=== PATIENT | male | born 1975 | race African-American/Black ===

== ENCOUNTER 2018-12-08 09:58 | Emergency (ER) | payer MEDICAID ==
[2018-12-08 10:06] VITALS: BP 136/97; PULSE 79
[2018-12-08] MEDS ORDERED: Sodium Chloride 0.9% 10 ML Syringe FLUSH PRN (10:10)
--- NOTE | 2018-12-08 11:33 | EDM.PDOC ---
ED HPI GENERAL MEDICAL PROBLEM - General Chief Complaint: Chest Pain Stated Complaint: [facility] Time Seen by Provider: 12/08/18 10:01 Source of Information: Reports: Patient History Limitations: Reports: No Limitations - History of Present Illness INITIAL COMMENTS - FREE TEXT/NARRATIVE: The patient presents by [facility] ambulance for right sided chest pain. This started just prior to arrival to arrival. 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 He was given aspirin and fentanyl 50mcg IV. He feels a little better now. He had some shortness of breath when it started. He has pain when moving his arm. He has no fever, chills, cough, abdominal pain, nausea, vomiting, leg pain and edema. He has no history of [place] but he does have a history of diabetes. Onset: Sudden Duration: Hour(s): Location: Reports: Chest Quality: Reports: Sharp Severity: Moderate Improves with: Reports: None Worsens with: Reports: None Associated Symptoms: Reports: Chest Pain Treatments GENERAL OPERATIONS MANAGER: Reports: Aspirin, Other Medication(s), Oxygen Other Treatments GENERAL OPERATIONS MANAGER: x3 81mg Right Chest Pain Score (Numeric/FACES): 10 - Related Data Allergies Allergy/AdvReac Type Severity Reaction Status Date / Time No Known Allergies Allergy Verified 09/19/15 23:46 Home Meds: Home Meds Insulin Aspart [NovoLOG] 0 unit SUBCUT WITHMEALSANDBED 10/23/18 [History] Insulin Detemir [Levemir Flextouch] 65 unit SQ BEDTIME 10/23/18 [History] Lisinopril 20 mg PO DAILY 10/23/18 [History] atorvaSTATin [Lipitor] 20 mg PO BEDTIME 10/23/18 [History] metFORMIN [Glucophage] 500 mg PO WITHDINNER 10/23/18 [History] Past Medical History - Past Health History Medical/Surgical History: Denies Medical/Surgical History Cardiovascular History: Reports: High Cholesterol, Hypertension, [place] Other Cardiovascular History: [place] x 2 years ago Gastrointestinal History: Reports: GERD Musculoskeletal History: Reports: Arthritis Neurological History: Reports: Concussion Endocrine/Metabolic History: Reports: Diabetes, Type II - Infectious Disease History Infectious Disease History: Reports: Chicken Pox - Past Surgical History HEENT Surgical History: Reports: Oral Surgery Social & Family History - Family History Family Medical History: Noncontributory - Tobacco Use Smoking Status *Q: Never Smoker - Caffeine Use Caffeine Use: Reports: Coffee - Living Situation & Occupation Living situation: Reports: , with Family Occupation: Employed ED ROS GENERAL - Review of Systems Review Of Systems: See Below Constitutional: Reports: No Symptoms HEENT: Reports: No Symptoms Respiratory: Reports: No Symptoms Cardiovascular: Reports: Chest Pain Endocrine: Reports: No Symptoms GI/Abdominal: Reports: No Symptoms : Reports: No Symptoms Musculoskeletal: Reports: No Symptoms ED EXAM, GENERAL - Physical Exam Exam: See Below Exam Limited By: No Limitations General Appearance: Alert, No Apparent Distress Ears: Normal External Exam Nose: Normal Inspection Head: Atraumatic, Normocephalic Neck: Normal Inspection Respiratory/Chest: No Respiratory Distress, Lungs Clear, Normal Breath Sounds Cardiovascular: Regular Rate, Rhythm, No Edema, No Murmur GI/Abdominal: Soft, Non-Tender, No Organomegaly, No Mass Back Exam: Normal Inspection Extremities: Normal Inspection EKG INTERPRETATION EKG Date: 12/08/18 Time: 10:05 Rhythm: NSR Rate (Beats/Min): 78 Wilmer: Normal P-Wave: Present QRS: Normal ST-T: Normal QT: Normal Course - Vital Signs Last Recorded V/S: Last Vital Signs Temp 96.9 F 12/08/18 10:02 Pulse 79 12/08/18 10:02 Resp 20 12/08/18 10:02 BP 136/97 H 12/08/18 10:02 Pulse Ox 95 12/08/18 10:02 - Orders/Labs/Meds Orders: Active Orders 24 hr Category Date Time Status Cardiac Monitoring [RC] . DIRECTED Care 12/08/18 10:10 Active EKG Documentation Completion [RC] STAT Care 12/08/18 10:11 Active Peripheral IV Care [RC] . DIRECTED Care 12/08/18 10:11 Active Chest 1V Frontal [CR] Stat Exams 12/08/18 10:11 Taken TROPONIN I [CHEM] Stat Lab 12/08/18 12:17 Ordered Sodium Chloride 0.9% [Saline Flush] Med 12/08/18 10:10 Active 10 ml FLUSH ASDIRECTED PRN Peripheral IV Insertion Adult [OM.PC] Stat Oth 12/08/18 10:10 Ordered Medication Orders Sodium Chloride (Saline Flush) 10 ml FLUSH ASDIRECTED PRN PRN Reason: Keep Vein Open Last Admin: 12/08/18 10:16 Dose: 10 ml Labs: Laboratory Tests 12/08/18 12/08/18 12/08/18 Range/Units 10:30 10:30 10:30 WBC 6.42 (4.23-9.07) K/mm3 RBC 4.99 (4.63-6.08) M/mm3 Hgb 14.5 D (13.7-17.5) gm/dl Hct 43.5 (40.1-51.0) % MCV 87.2 (79.0-92.2) fl MCH 29.1 (25.7-32.2) pg MCHC 33.3 (32.2-35.5) g/dl RDW Std Deviation 46.2 H (35.1-43.9) fL Plt Count 227 (163-337) K/mm3 MPV 10.9 (9.4-12.3) fl Neut % (Auto) 48.1 (34.0-67.9) % Lymph % (Auto) 37.9 (21.8-53.1) % [place] % (Auto) 10.0 (5.3-12.2) % Eos % (Auto) 3.3 (0.8-7.0) Baso % (Auto) 0.5 (0.1-1.2) % Neut # (Auto) 3.10 (1.78-5.38) K/mm3 Lymph # (Auto) 2.43 (1.32-3.57) K/mm3 [place] # (Auto) 0.64 (0.30-0.82) K/mm3 Eos # (Auto) 0.21 (0.04-0.54) K/mm3 Baso # (Auto) 0.03 (0.01-0.08) K/mm3 D-Dimer, Quantitative 0.25 (0.19-0.50) mg/L Sodium 141 (136-145) mEq/L Potassium 4.1 (3.5-5.1) mEq/L Chloride 105 (98-107) mEq/L Carbon Dioxide 28 (21-32) mEq/L Anion Gap 12.1 (5-15) BUN 16 (7-18) mg/dL Creatinine 1.2 (0.7-1.3) mg/dL Est Cr Clr Drug Dosing 82.80 mL/min Estimated GFR (MDRD) > 60 (>60) mL/min BUN/Creatinine Ratio 13.3 L (14-18) Glucose 101 (74-106) mg/dL Calcium 8.7 (8.5-10.1) mg/dL Total Bilirubin 0.5 (0.2-1.0) mg/dL AST 36 (15-37) U/L ALT 65 H (16-63) U/L Alkaline Phosphatase 42 L (46-116) U/L Troponin I < 0.017 (0.00-0.056) ng/mL Total Protein 6.8 (6.4-8.2) g/dl Albumin 3.5 (3.4-5.0) g/dl Globulin 3.3 gm/dL Albumin/Globulin Ratio 1.1 (1-2) Meds: Medications Generic Name Dose Route Start Last Admin Trade Name Freq PRN Reason Stop Dose Admin Sodium Chloride 10 ml 12/08/18 10:10 12/08/18 10:16 Saline Flush FLUSH 10 ml ASDIRECTED PRN Administration Keep Vein Open - Re-Assessments/Exams Free Text/Narrative Re-Assessment/Exam: 12/08/18 11:34 I ordered an IV saline lock, EKG, CXR and labs. His EKG shows a NSR with no acute changes. His CXR looks good. 12/08/18 11:35 His CBC and D-dimer are negative. 12/08/18 12:26 His CMP look good. His troponin is negative. I will get a repeat troponin. Departure - Departure Time of Disposition: 12:30 Disposition: Home, Self-Care 01 Condition: Good Clinical Impression: Atypical chest pain Referrals: PCP,None [Primary Care Provider] - Jose Johnson PA-C [Physician Pedigree Researcher] - 1 Week Forms: ED Department Discharge Additional Instructions: Take tylenol or motrin for the pain. Follow up with Jose Johnson. Please return if you are worse. - My Orders Last 24 Hours: My Active Orders 12/08/18 10:10 Cardiac Monitoring [RC] . DIRECTED Sodium Chloride 0.9% [Saline Flush] 10 ml FLUSH ASDIRECTED PRN Peripheral IV Insertion Adult [OM.PC] Stat 12/08/18 10:11 EKG Documentation Completion [RC] STAT Peripheral IV Care [RC] . DIRECTED Chest 1V Frontal [CR] Stat 12/08/18 12:17 TROPONIN I [CHEM] Stat - Assessment/Plan Last 24 Hours: My Active Orders 12/08/18 10:10 Cardiac Monitoring [RC] . DIRECTED Sodium Chloride 0.9% [Saline Flush] 10 ml FLUSH ASDIRECTED PRN Peripheral IV Insertion Adult [OM.PC] Stat 12/08/18 10:11 EKG Documentation Completion [RC] STAT Peripheral IV Care [RC] . DIRECTED Chest 1V Frontal [CR] Stat 12/08/18 12:17 TROPONIN I [CHEM] Stat
--- NOTE | 2018-12-08 15:01 | CR ---
Chest: Portable view of the chest was obtained. Comparison: No prior chest x-ray. Heart size and mediastinum are normal. Lungs are clear. Bony structures are grossly intact. Pressure: 1. Nothing acute is appreciated on portable chest x-ray. Diagnostic code #1
== END 2018-12-08 12:50 | disposition home or self-care (01) ==
LOC: JD.ED 09:58
DX: R07.89 Other chest pain (principal); E11.9 Type 2 diabetes mellitus without complications; I25.2 Old myocardial infarction; E78.5 Hyperlipidemia, unspecified; Z79.4 Long term (current) use of insulin; Z79.899 Other long term (current) drug therapy
CPT/HCPCS: 36415; 71045; 71045-26; 80053; 84484; 85025; 85379; 93005; 93010; 99284; 99285-25

== ENCOUNTER 2019-03-23 04:03 | Emergency (ER) | payer MEDICAID ==
[2019-03-23 04:13] VITALS: BP 160/101; PULSE 86
--- NOTE | 2019-03-23 05:04 | EDM.PDOC ---
ED HPI GENERAL MEDICAL PROBLEM - General Chief Complaint: Chest Pain Stated Complaint: PAIN IN CHEST AND BURNING EYES Time Seen by Provider: 03/23/19 04:28 Source of Information: Reports: Patient History Limitations: Reports: No Limitations - History of Present Illness INITIAL COMMENTS - FREE TEXT/NARRATIVE: This is a 43-year-old male. He apparently awoke around 2 AM with some tightness and sharp pain in his chest and he wakes up his and tells her he is having chest pain. Wanted to bring him to the ER but he indicated would go away soon because he gets it every so often. It did not go away soon and so he comes to the ER around 4 AM. By now much of the discomfort has resolved and he says he does not really have any sharp pain there just may be a little bit of muscle tightness. He has had muscle tightness in his chest before that has mimicked chest pain. He knows about chest pain because back in 2006 his blood sugar was in the 900s and he had a small heart attack at that time. He is now an insulin-dependent diabetic. He does not think anything is going on at this time but he comes to the ER. I explained to him the EKG did not show any acute changes at this time. He denies any recent illnesses colds coughs nausea vomiting or diarrhea. - Related Data Allergies Allergy/AdvReac Type Severity Reaction Status Date / Time No Known Allergies Allergy Verified 03/23/19 04:13 Home Meds: Home Meds Insulin Aspart [NovoLOG] 0 unit SUBCUT WITHMEALSANDBED 10/23/18 [History] Insulin Detemir [Levemir Flextouch] 65 unit SQ BEDTIME 10/23/18 [History] Lisinopril 20 mg PO DAILY 10/23/18 [History] atorvaSTATin [Lipitor] 20 mg PO BEDTIME 10/23/18 [History] metFORMIN [Glucophage] 500 mg PO WITHDINNER 10/23/18 [History] Past Medical History - Past Health History Medical/Surgical History: Denies Medical/Surgical History Cardiovascular History: Reports: High Cholesterol, Hypertension, [place] Other Cardiovascular History: [place] x 2 years ago Gastrointestinal History: Reports: GERD Musculoskeletal History: Reports: Arthritis Neurological History: Reports: Concussion Endocrine/Metabolic History: Reports: Diabetes, Type II - Infectious Disease History Infectious Disease History: Reports: Chicken Pox - Past Surgical History HEENT Surgical History: Reports: Oral Surgery Social & Family History - Family History Family Medical History: Noncontributory - Tobacco Use Smoking Status *Q: Never Smoker - Caffeine Use Caffeine Use: Reports: Coffee - Recreational Drug Use Recreational Drug Use: No - Living Situation & Occupation Living situation: Reports: , with Family Occupation: Employed ED ROS GENERAL - Review of Systems Review Of Systems: See Below Constitutional: Denies: Fever, Chills, Diaphoresis HEENT: Reports: No Symptoms Respiratory: Denies: Shortness of Breath, Wheezing, Cough Cardiovascular: Reports: Chest Pain. Denies: Edema Endocrine: Reports: High Glucose GI/Abdominal: Denies: Abdominal Pain, Constipation, Diarrhea, Nausea, Vomiting : Reports: No Symptoms Musculoskeletal: Reports: No Symptoms Skin: Reports: No Symptoms Neurological: Reports: No Symptoms Psychiatric: Reports: No Symptoms. Denies: Anxiety Hematologic/Lymphatic: Reports: No Symptoms ED EXAM, GENERAL - Physical Exam Exam: See Below Exam Limited By: No Limitations General Appearance: Alert, WD/WN, No Apparent Distress Eye Exam: Bilateral Eye: Normal Inspection Ears: Normal External Exam Nose: Normal Inspection Throat/Mouth: Normal Inspection, Normal Lips, Normal Voice, No Airway Compromise Head: Normocephalic Neck: Supple Respiratory/Chest: No Respiratory Distress, Lungs Clear, Normal Breath Sounds, Other (His anterior chest is not particularly tender on palpation and I cannot reproduce any sharp pain or tightness) Cardiovascular: Regular Rate, Rhythm, No Murmur GI/Abdominal: Soft, Non-Tender Back Exam: Full Range of Motion Extremities: Normal Inspection, Normal Range of Motion Neurological: Alert, Oriented Psychiatric: Normal Affect, Normal Mood Skin Exam: Warm, Dry EKG INTERPRETATION EKG Date: 03/23/19 Time: 04:15 EKG Interpretation Comments: Normal sinus rhythm rate 85, no acute ST or T wave changes, no ischemia noted, early repolarization variant is noted Course - Vital Signs Last Recorded V/S: Last Vital Signs Temp 97.8 F 03/23/19 04:10 Pulse 86 03/23/19 04:10 Resp 16 03/23/19 04:10 BP 160/101 H 03/23/19 04:10 Pulse Ox 98 03/23/19 04:10 - Orders/Labs/Meds Orders: Active Orders 24 hr Category Date Time Status Blood Glucose Check, Bedside [RC] ONETIME Care 03/23/19 04:18 Active EKG Documentation Completion [RC] ASDIRECTED Care 03/23/19 04:18 Active EKG 12 Lead [EK] Stat Ther 03/23/19 04:18 Ordered Labs: Laboratory Tests 03/23/19 03/23/19 03/23/19 Range/Units 04:16 04:53 04:53 WBC 9.84 H (4.23-9.07) K/mm3 RBC 5.46 (4.63-6.08) M/mm3 Hgb 16.3 D (13.7-17.5) gm/dl Hct 47.7 (40.1-51.0) % MCV 87.4 (79.0-92.2) fl MCH 29.9 (25.7-32.2) pg MCHC 34.2 (32.2-35.5) g/dl RDW Std Deviation 43.4 (35.1-43.9) fL Plt Count 224 (163-337) K/mm3 MPV 10.9 (9.4-12.3) fl Neut % (Auto) 62.8 (34.0-67.9) % Lymph % (Auto) 26.2 (21.8-53.1) % [place] % (Auto) 9.8 (5.3-12.2) % Eos % (Auto) 0.9 (0.8-7.0) Baso % (Auto) 0.2 (0.1-1.2) % Neut # (Auto) 6.18 H (1.78-5.38) K/mm3 Lymph # (Auto) 2.58 (1.32-3.57) K/mm3 [place] # (Auto) 0.96 H (0.30-0.82) K/mm3 Eos # (Auto) 0.09 (0.04-0.54) K/mm3 Baso # (Auto) 0.02 (0.01-0.08) K/mm3 Sodium 140 (136-145) mEq/L Potassium 3.9 (3.5-5.1) mEq/L Chloride 102 (98-107) mEq/L Carbon Dioxide 26 (21-32) mEq/L Anion Gap 15.9 H (5-15) BUN 17 (7-18) mg/dL Creatinine 1.2 (0.7-1.3) mg/dL Est Cr Clr Drug Dosing 82.80 mL/min Estimated GFR (MDRD) > 60 (>60) mL/min BUN/Creatinine Ratio 14.2 (14-18) Glucose 138 H (74-106) mg/dL POC Glucose 154 H (70-105) mg/dL Calcium 9.4 (8.5-10.1) mg/dL Total Bilirubin 0.9 (0.2-1.0) mg/dL AST 9 L (15-37) U/L ALT 31 (16-63) U/L Alkaline Phosphatase 56 (46-116) U/L Troponin I < 0.017 (0.00-0.056) ng/mL Total Protein 7.7 (6.4-8.2) g/dl Albumin 3.8 (3.4-5.0) g/dl Globulin 3.9 gm/dL Albumin/Globulin Ratio 1.0 (1-2) - Re-Assessments/Exams Free Text/Narrative Re-Assessment/Exam: 03/23/19 06:05 Patient has been having no symptoms since he arrived to the ER. His were waiting for the blood work the patient got tired of waiting and since just left the ER stating he did not want to wait any longer. Is about that time that we actually got the labs back but he was not here. His troponin was normal his CBC and electrolytes were all normal as well. I would therefore would have discharged him but he is already left. Departure - Departure Time of Disposition: 06:06 Disposition: Eloped 07 Condition: Good Clinical Impression: Atypical chest pain Referrals: Tanja Daniels PA-C [Primary Care Provider] - Forms: ED Department Discharge Additional Instructions: Patient is already left without receiving charge instructions Sepsis Event Note - Evaluation Sepsis Screening Result: No Definite Risk - Focused Exam Vital Signs: Vital Signs Temp Pulse Resp BP Pulse Ox 03/23/19 04:10 97.8 F 86 16 160/101 H 98 Date Exam was Performed: 03/23/19 Time Exam was Performed: 06:05 - My Orders Last 24 Hours: My Active Orders 03/23/19 04:18 Blood Glucose Check, Bedside [RC] ONETIME EKG Documentation Completion [RC] ASDIRECTED EKG 12 Lead [EK] Stat - Assessment/Plan Last 24 Hours: My Active Orders 03/23/19 04:18 Blood Glucose Check, Bedside [RC] ONETIME EKG Documentation Completion [RC] ASDIRECTED EKG 12 Lead [EK] Stat
== END 2019-03-23 05:52 | disposition left against medical advice (07) ==
LOC: JD.ED 04:03
DX: R07.89 Other chest pain (principal); I10 Essential (primary) hypertension; E11.9 Type 2 diabetes mellitus without complications; I25.2 Old myocardial infarction; E78.00 Pure hypercholesterolemia, unspecified; M19.90 Unspecified osteoarthritis, unspecified site; Z79.4 Long term (current) use of insulin; Z79.899 Other long term (current) drug therapy
CPT/HCPCS: 36415; 80053; 82962; 84484; 85025; 93005; 93010; 99282; 99285-25

== ENCOUNTER 2019-07-12 22:00 | Emergency (ER) | payer MEDICAID ==
[2019-07-12 22:25] VITALS: BP 158/72; PULSE 98
--- NOTE | 2019-07-12 22:33 | EDM.PDOC ---
ED HPI GENERAL MEDICAL PROBLEM - General Chief Complaint: Skin Complaint Stated Complaint: INFECTION LEFT HAND/FEET & KNEES HURT Time Seen by Provider: 07/12/19 22:01 Source of Information: Reports: Patient History Limitations: Reports: Other (Very poor historian) - History of Present Illness INITIAL COMMENTS - FREE TEXT/NARRATIVE: TRIAGE NOTE -- pt c/o left hand infection for the last 2 weeks. significant other has taken pt to the [facility] x2, the first time pt was diagnosed with gout, the second time was placed on antibiotics. SO is unsure if patient is taking the antibiotics or not. SO also concerned as patient is a type 2 diabetic and has not been taking his metformin or insulin. pt complains of bilateral feet pain and is unsteady on his feet. [ End ] As above. Risk factors include history of IV drug abuse. Patient insists he did not inject himself in the area of his left hand. Other risk factors include diabetes high blood pressure smoking and noncompliance. Patient does not know what antibiotic he should be taking. It is not clear that he is taking an antibiotic. Denies fever respiratory symptoms or other symptom of acute medical illness. Left Hand Pain Score (Numeric/FACES): 7 Bilateral Foot Pain Score (Numeric/FACES): 10 - Related Data Allergies Allergy/AdvReac Type Severity Reaction Status Date / Time No Known Allergies Allergy Verified 07/12/19 22:25 Home Meds: Home Meds Insulin Aspart [NovoLOG] 0 unit SUBCUT WITHMEALSANDBED 10/23/18 [History] Insulin Detemir [Levemir Flextouch] 65 unit SQ BEDTIME 10/23/18 [History] Lisinopril 20 mg PO DAILY 10/23/18 [History] atorvaSTATin [Lipitor] 20 mg PO BEDTIME 10/23/18 [History] metFORMIN [Glucophage] 500 mg PO WITHDINNER 10/23/18 [History] Past Medical History - Past Health History Medical/Surgical History: Denies Medical/Surgical History Cardiovascular History: Reports: High Cholesterol, Hypertension, [place] Other Cardiovascular History: [place] x 2 years ago Gastrointestinal History: Reports: GERD Musculoskeletal History: Reports: Arthritis Neurological History: Reports: Concussion Endocrine/Metabolic History: Reports: Diabetes, Type II - Infectious Disease History Infectious Disease History: Reports: Chicken Pox - Past Surgical History HEENT Surgical History: Reports: Oral Surgery Social & Family History - Family History Family Medical History: Noncontributory - Tobacco Use Smoking Status *Q: Current Every Day Smoker - Caffeine Use Caffeine Use: Reports: Coffee - Living Situation & Occupation Living situation: Reports: , with Family Occupation: Employed ED ROS GENERAL - Review of Systems Review Of Systems: Comprehensive ROS is negative, except as noted in HPI. ED EXAM, SKIN/RASH Exam: See Below Exam Limited By: No Limitations General Appearance: No Apparent Distress, Lethargic (Somewhat lethargic) Eye Exam: Bilateral Eye: EOMI, PERRL Ears: Normal External Exam Nose: Normal Inspection Throat/Mouth: Normal Inspection Head: Atraumatic, Normocephalic Respiratory/Chest: No Respiratory Distress, Lungs Clear Cardiovascular: Regular Rate, Rhythm GI/Abdominal: Soft, Non-Tender Back Exam: Normal Inspection Extremities: Normal Inspection (Except as noted), Other (There is a tender protuberant feature laterally over the left metacarpophalangeal joint of the thumb left hand. There is fullness and flocculence consistent with abscess. There is no drainage. Overall dimension about 2 cm. There is some dryness and superficial exfoliation over the apex of the feature. There is generalized soft tissue edema in that area.) Neurological: Inattentive Psychiatric: Flat Affect Skin: Warm, Dry Course - Vital Signs Last Recorded V/S: Last Vital Signs Temp 37.3 C 07/12/19 22:20 Pulse 98 07/12/19 22:20 Resp 16 07/12/19 22:20 BP 158/72 H 07/12/19 22:20 Pulse Ox 97 07/12/19 22:20 - Orders/Labs/Meds Orders: Active Orders 24 hr Category Date Time Status Urinary Catheter Assessment [RC] ASDIRECTED Care 07/12/19 23:55 Active Urinary Catheter Insertion [Insert Urinary Catheter] [ Care 07/12/19 23:30 Ordered OM.PC] Q24H Hand 2V Lt [CR] Stat Exams 07/12/19 23:05 Taken CULTURE BLOOD [BC] Stat Lab 07/12/19 22:30 Received CULTURE BLOOD [BC] Stat Lab 07/12/19 22:40 Received Piperacillin/Tazobactam [Piperacil-Tazobact] 4.5 gm Med 07/13/19 01:31 Active Sodium Chloride 0.9% [Normal Saline] 100 ml IV ONETIME Vancomycin [Vancocin] 1 gm Med 07/13/19 01:31 Active Sodium Chloride 0.9% [Normal Saline (AdvBag)] 250 ml IV ONETIME Blood Culture x2 Reflex Set [OM.PC] Stat Oth 07/12/19 22:26 Ordered Medication Orders Vancomycin HCl 1 gm/ Sodium (Chloride) 250 mls @ 250 mls/hr IV ONETIME ONE Stop: 07/13/19 02:30 Piperacillin Sod/Tazobactam (Sod 4.5 gm/ Sodium Chloride) 100 mls @ 200 mls/hr IV ONETIME ONE Stop: 07/13/19 02:00 Labs: Laboratory Tests 07/12/19 07/12/19 07/12/19 Range/Units 22:22 22:30 22:30 WBC 11.95 H (4.23-9.07) K/mm3 RBC 4.73 (4.63-6.08) M/mm3 Hgb 14.6 D (13.7-17.5) gm/dl Hct 43.8 (40.1-51.0) % MCV 92.6 H D (79.0-92.2) fl MCH 30.9 (25.7-32.2) pg MCHC 33.3 (32.2-35.5) g/dl RDW Std Deviation 43.7 (35.1-43.9) fL Plt Count 245 (163-337) K/mm3 MPV 10.9 (9.4-12.3) fl Neutrophils % (Manual) 61 H (40-60) % Band Neutrophils % 0 (0-10) % Lymphocytes % (Manual) 33 (20-40) % Atypical Lymphs % 0 % Monocytes % (Manual) 4 (2-10) % Eosinophils % (Manual) 2 (0.8-7.0) % Basophils % (Manual) 0 L (0.2-1.2) Platelet Estimate Adequate RBC Morph Comment Normal Sodium 143 (136-145) mEq/L Potassium 3.7 (3.5-5.1) mEq/L Chloride 106 (98-107) mEq/L Carbon Dioxide 28 (21-32) mEq/L Anion Gap 12.7 (5-15) BUN 31 H (7-18) mg/dL Creatinine 1.3 (0.7-1.3) mg/dL Est Cr Clr Drug Dosing 76.43 mL/min Estimated GFR (MDRD) > 60 (>60) mL/min BUN/Creatinine Ratio 23.8 H (14-18) Glucose 157 H (74-106) mg/dL POC Glucose 133 H (70-105) mg/dL Lactic Acid (0.4-2.0) mmol/L Calcium 9.1 (8.5-10.1) mg/dL Magnesium 2.2 (1.8-2.4) mg/dl Total Bilirubin 0.8 (0.2-1.0) mg/dL AST 72 H (15-37) U/L ALT 67 H (16-63) U/L Alkaline Phosphatase 60 (46-116) U/L Total Protein 7.3 (6.4-8.2) g/dl Albumin 3.5 (3.4-5.0) g/dl Globulin 3.8 gm/dL Albumin/Globulin Ratio 0.9 L (1-2) Urine Color (Yellow) Urine Appearance (Clear) Urine pH (5.0-8.0) Ur Specific [place] (1.005-1.030) Urine Protein (Negative) Urine Glucose (UA) (Negative) Urine Ketones (Negative) Urine Occult Blood (Negative) Urine Nitrite (Negative) Urine Bilirubin (Negative) Urine Urobilinogen (0.2-1.0) Ur Leukocyte Esterase (Negative) U Hyaline Cast (Auto) (0-5) /lpf Urine RBC (0-5) /hpf Urine WBC (0-5) /hpf Ur Squamous Epith Cells (0-5) /hpf Urine Bacteria (FEW) /hpf Urine Mucus (FEW) /hpf Urine Opiates Screen (TPGABH=767) Ur Buprenorphine Scrn (CUTOFF=10) Ur Oxycodone Screen (VWR8JF=947) Urine Methadone Screen (ZZW8HS=715) Ur Propoxyphene Screen (GDNCYH=309) Ur Barbiturates Screen (BPUENY=971) Ur Tricyclics Screen (HQOFZB=224) Ur Phencyclidine Scrn (CUTOFF=25) Ur Amphetamine Screen (NHWYGH=700) U Methamphetamines Scrn (BKMQNG=755) U Benzodiazepines Scrn (ALAQAN=207) U Cocaine Metab Screen (NZQBJE=235) U Marijuana (THC) Screen (CUTOFF=50) 05/02/20 05/02/20 05/02/20 Range/Units 22:30 23:37 23:37 WBC (4.23-9.07) K/mm3 RBC (4.63-6.08) M/mm3 Hgb (13.7-17.5) gm/dl Hct (40.1-51.0) % MCV (79.0-92.2) fl MCH (25.7-32.2) pg MCHC (32.2-35.5) g/dl RDW Std Deviation (35.1-43.9) fL Plt Count (163-337) K/mm3 MPV (9.4-12.3) fl Neutrophils % (Manual) (40-60) % Band Neutrophils % (0-10) % Lymphocytes % (Manual) (20-40) % Atypical Lymphs % % Monocytes % (Manual) (2-10) % Eosinophils % (Manual) (0.8-7.0) % Basophils % (Manual) (0.2-1.2) Platelet Estimate RBC Morph Comment Sodium (136-145) mEq/L Potassium (3.5-5.1) mEq/L Chloride (98-107) mEq/L Carbon Dioxide (21-32) mEq/L Anion Gap (5-15) BUN (7-18) mg/dL Creatinine (0.7-1.3) mg/dL Est Cr Clr Drug Dosing mL/min Estimated GFR (MDRD) (>60) mL/min BUN/Creatinine Ratio (14-18) Glucose (74-106) mg/dL POC Glucose (70-105) mg/dL Lactic Acid 1.4 (0.4-2.0) mmol/L Calcium (8.5-10.1) mg/dL Magnesium (1.8-2.4) mg/dl Total Bilirubin (0.2-1.0) mg/dL AST (15-37) U/L ALT (16-63) U/L Alkaline Phosphatase (46-116) U/L Total Protein (6.4-8.2) g/dl Albumin (3.4-5.0) g/dl Globulin gm/dL Albumin/Globulin Ratio (1-2) Urine Color Elle H (Yellow) Urine Appearance Clear (Clear) Urine pH 5.5 (5.0-8.0) Ur Specific [place] > or = 1.030 (1.005-1.030) Urine Protein 1+ H (Negative) Urine Glucose (UA) Negative (Negative) Urine Ketones Negative (Negative) Urine Occult Blood Trace-lysed H (Negative) Urine Nitrite Negative (Negative) Urine Bilirubin 1+ H (Negative) Urine Urobilinogen 1.0 (0.2-1.0) Ur Leukocyte Esterase Negative (Negative) U Hyaline Cast (Auto) 5-10 H (0-5) /lpf Urine RBC 0-5 (0-5) /hpf Urine WBC 0-5 (0-5) /hpf Ur Squamous Epith Cells 0-5 (0-5) /hpf Urine Bacteria Few (FEW) /hpf Urine Mucus Moderate H (FEW) /hpf Urine Opiates Screen Negative (CTVZNQ=365) Ur Buprenorphine Scrn Negative (CUTOFF=10) Ur Oxycodone Screen Negative (SWH0SB=298) Urine Methadone Screen Negative (ABJ9WG=375) Ur Propoxyphene Screen Negative (KLUOMH=543) Ur Barbiturates Screen Negative (FXPFLI=456) Ur Tricyclics Screen Negative (RVLCSH=190) Ur Phencyclidine Scrn Negative (CUTOFF=25) Ur Amphetamine Screen Presumptive positive H (DCBZQF=184) U Methamphetamines Scrn Presumptive positive H (WGWWZE=504) U Benzodiazepines Scrn Negative (DLQPXZ=609) U Cocaine Metab Screen Negative (ABDELZ=609) U Marijuana (THC) Screen Negative (CUTOFF=50) Meds: Medications Generic Name Dose Route Start Last Admin Trade Name Freq PRN Reason Stop Dose Admin Vancomycin HCl 1 gm/ Sodium 250 mls @ 250 mls/hr 07/13/19 01:31 Chloride IV 07/13/19 02:30 ONETIME ONE Piperacillin Sod/Tazobactam 100 mls @ 200 mls/hr 07/13/19 01:31 Sod 4.5 gm/ Sodium Chloride IV 07/13/19 02:00 ONETIME ONE - Re-Assessments/Exams Free Text/Narrative Re-Assessment/Exam: 07/13/19 01:38 Discussed with the patient and his . There is evidence of osteomyelitis as well as the soft tissue infection and possible abscess of the left hand. X-ray shows probable acute osteomyelitis. Presented to our hospitalist who is not comfortable admitting the patient without hand surgery and I agree that he does need to be transferred. [facility] José and patient is accepted in transfer. Will receive antibiotics prior to departure. Will go by ambulance. Departure - Departure Time of Disposition: 01:39 Disposition: DC/Tfer to [facility] 02 Condition: Fair Clinical Impression: Infection of left hand, Osteomyelitis of hand, left, acute, IV drug abuse, Methamphetamine abuse - Discharge Information Referrals: PCP,None [Primary Care Provider] - Forms: ED Department Discharge Sepsis Event Note - Evaluation Sepsis Screening Result: No Definite Risk - Focused Exam Vital Signs: Vital Signs Temp Pulse Resp BP Pulse Ox 07/12/19 22:20 37.3 C 98 16 158/72 H 97 Date Exam was Performed: 07/13/19 Time Exam was Performed: 01:36 - My Orders Last 24 Hours: My Active Orders 07/12/19 22:26 Blood Culture x2 Reflex Set [OM.PC] Stat 07/12/19 22:30 CULTURE BLOOD [BC] Stat 07/12/19 22:40 CULTURE BLOOD [BC] Stat 07/12/19 23:05 Hand 2V Lt [CR] Stat 07/12/19 23:30 Urinary Catheter Insertion [Insert Urinary Catheter] [OM.PC] Q24H 07/12/19 23:55 Urinary Catheter Assessment [RC] ASDIRECTED 07/13/19 01:31 Piperacillin/Tazobactam [Piperacil-Tazobact] 4.5 gm Sodium Chloride 0.9% [ Normal Saline] 100 ml IV ONETIME Vancomycin [Vancocin] 1 gm Sodium Chloride 0.9% [Normal Saline (AdvBag)] 250 ml IV ONETIME - Assessment/Plan Last 24 Hours: My Active Orders 07/12/19 22:26 Blood Culture x2 Reflex Set [OM.PC] Stat 07/12/19 22:30 CULTURE BLOOD [BC] Stat 07/12/19 22:40 CULTURE BLOOD [BC] Stat 07/12/19 23:05 Hand 2V Lt [CR] Stat 07/12/19 23:30 Urinary Catheter Insertion [Insert Urinary Catheter] [OM.PC] Q24H 07/12/19 23:55 Urinary Catheter Assessment [RC] ASDIRECTED 07/13/19 01:31 Piperacillin/Tazobactam [Piperacil-Tazobact] 4.5 gm Sodium Chloride 0.9% [ Normal Saline] 100 ml IV ONETIME Vancomycin [Vancocin] 1 gm Sodium Chloride 0.9% [Normal Saline (AdvBag)] 250 ml IV ONETIME
[2019-07-13] MEDS ORDERED: Piperacillin/Tazobactam 4.5 GM in Sodium Chloride 0.9% 100 ML IV ONE (01:31)
--- NOTE | 2019-07-13 11:12 | CR ---
Left hand: 2 views of the left hand were obtained. Comparison: No previous hand exam. Joint spaces are preserved. Small foreign body is projected within the soft tissues at the base of the thumb. Slight irregularity is noted within the distal 1st metacarpal which appears to represent an old ulcer. No definite acute findings of osteomyelitis are seen. Impression: 1. Small metallic foreign body within the base of the thumb. 2. Finding within the distal 1st metacarpal believed to represent old ulcer. 3. No definite acute osteomyelitis is seen. If patient has persistent symptoms, hand MRI could then be considered. Diagnostic code #3 This report was dictated in MDT I agree with preliminary report from [facility], finalized on 07/13/19, 1:11 AM Central Daylight Time
== END 2019-07-13 06:54 ==
LOC: JD.ED 22:00
DX: E11.69 Type 2 diabetes mellitus with other specified complication (principal); M86.142 Other acute osteomyelitis, left hand; L08.89 Other specified local infections of the skin and subcutaneous tissue; F19.10 Other psychoactive substance abuse, uncomplicated; F15.10 Other stimulant abuse, uncomplicated; E78.00 Pure hypercholesterolemia, unspecified; I10 Essential (primary) hypertension; I25.2 Old myocardial infarction; F17.200 Nicotine dependence, unspecified, uncomplicated; Z79.4 Long term (current) use of insulin; Z79.899 Other long term (current) drug therapy; Z91.14 Patient's other noncompliance with medication regimen
CPT/HCPCS: 36415; 73120; 80053; 80306; 81001; 82962; 83605; 83735; 85007; 85027; 87040; 96365; 96367; 99284; J2543; J3370; J7050; 99285

== ENCOUNTER 2020-04-26 09:13 | Day surgery (SDC) | payer MEDICAID ==
[~2020-04-26 09:13] MED LIST: Acetaminophen 325 MG Tab PO SCH; Lactated Ringers 1,000 ML IV SCH; Lidocaine 1%/Sod Bicarbonate in NS 8.4% 1 ML Syringe IDERM PRN; Pregabalin 25 MG Cap PO SCH; Sodium Chloride 0.9% 10 ML Syringe FLUSH PRN; oxyCODONE ER 10 MG TAB.ER PO SCH
--- NOTE | 2020-04-26 09:56 | PCM.PREANE ---
Preanesthetic Assessment - Procedure Proposed Procedure: Left TKA - Anesthesia/Transfusion/Family Hx Anesthesia History: Prior Anesthesia Without Reaction Family History of Anesthesia Reaction: No Transfusion History: No Prior Transfusion(s) - Review of Systems General: No Symptoms Pulmonary: No Symptoms Cardiovascular: No Symptoms Gastrointestinal: No Symptoms Neurological: Numbness (at times) Other: Reports: Easy Bruising, Diabetes (Check this am 93) - Physical Assessment NPO Status Date: 04/25/20 NPO Status Time: 00:00 Height: 1.78 m Weight: 117 kg ASA Class: 2 Mental Status: Alert & Oriented x3 Airway Class: Mallampati = 1 Dentition: Reports: Implants (top front) Thyro-Mental Finger Breadths: 3 Mouth Opening Finger Breadths: 3 ROM/Head Extension: Full Lungs: Clear to Auscultation, Normal Respiratory Effort Cardiovascular: Regular Rate, Regular Rhythm - Lab Values: Laboratory Last Values Urine Opiates Screen Negative (EWNMGT=168) 04/26/20 07:12 Ur Buprenorphine Scrn Negative (CUTOFF=10) 04/26/20 07:12 Ur Oxycodone Screen Presumptive positive (JLD2WL=338) H 04/26/20 07:12 Urine Methadone Screen Negative (AEI5LR=583) 04/26/20 07:12 Ur Propoxyphene Screen Negative (IGORMJ=830) 04/26/20 07:12 Ur Barbiturates Screen Negative (IJDBJD=441) 04/26/20 07:12 Ur Tricyclics Screen Negative (VQJNAW=057) 04/26/20 07:12 Ur Phencyclidine Scrn Negative (CUTOFF=25) 04/26/20 07:12 Ur Amphetamine Screen Negative (KEKMRL=501) 04/26/20 07:12 U Methamphetamines Scrn Negative (KTCHOF=197) 04/26/20 07:12 U Benzodiazepines Scrn Negative (FAVWYX=227) 04/26/20 07:12 U Cocaine Metab Screen Negative (NUUBFZ=036) 04/26/20 07:12 U Marijuana (THC) Screen Negative (CUTOFF=50) 04/26/20 07:12 MRSA (PCR) Negative 04/08/20 13:19 - Allergies Allergies/Adverse Reactions: Allergies Allergy/AdvReac Type Severity Reaction Status Date / Time No Known Allergies Allergy Verified 04/23/20 13:59 - Anesthesia Plan Pre-Op Medication Ordered: None - Acknowledgements Anesthesia Type Planned: Spinal, Regional Block Pt an Appropriate Candidate for the Planned Anesthesia: Yes Alternatives and Risks of Anesthesia Discussed w Pt/Guardian: Yes Pt/Guardian Understands and Agrees with Anesthesia Plan: Yes PreAnesthesia Questionnaire - Past Health History Medical/Surgical History: Denies Medical/Surgical History HEENT History: Reports: Impaired Vision Cardiovascular History: Reports: High Cholesterol, Hypertension, [place] Other Cardiovascular History: [place] x 2 years ago Respiratory History: Reports: None Gastrointestinal History: Reports: GERD Genitourinary History: Reports: None HAND SHOE CUTTER History: Reports: None Musculoskeletal History: Reports: Arthritis Neurological History: Reports: Concussion Psychiatric History: Reports: Addiction Endocrine/Metabolic History: Reports: Diabetes, Type II Hematologic History: Reports: None Immunologic History: Reports: None Oncologic (Cancer) History: Reports: None Dermatologic History: Reports: None - Infectious Disease History Infectious Disease History: Reports: None - Past Surgical History Head Surgeries/Procedures: Reports: None HEENT Surgical History: Reports: Oral Surgery Respiratory Surgical History: Reports: None GI Surgical History: Reports: None Female Surgical History: Reports: None Male Surgical History: Reports: None Endocrine Surgical History: Reports: None Neurological Surgical History: Reports: None Musculoskeletal Surgical History: Reports: None Oncologic Surgical History: Reports: None Dermatological Surgical History: Reports: None - SUBSTANCE USE Tobacco Use Status *Q: Current Every Day Tobacco User Second Hand Smoke Exposure: No Days Per Week of Alcohol Use: 1 Number of Drinks Per Day: 0 Total Drinks Per Week: 0 Recreational Drug Use History: Yes Recreational Drug Type: Reports: Methamphetamine - HOME MEDS Home Medications: Home Meds Acetaminophen [Tylenol Arthritis Pain] 650 mg PO Q8H PRN 10/31/19 [History] traZODone HCl [Trazodone HCl] 100 mg PO BEDTIME 10/31/19 [History] Apixaban [Eliquis] 2.5 mg PO BID #84 tablet 04/26/20 [Rx] Cyclobenzaprine [Flexeril] 10 mg PO BID PRN #20 tab 04/26/20 [Rx] oxyCODONE 5 - 10 mg PO Q4H PRN #40 tab 04/26/20 [Rx] - CURRENT (IN HOUSE) MEDS Current Meds: Current Medications Acetaminophen (Tylenol) 975 mg PO ONETIME PABLO Stop: 04/26/20 13:00 Last Admin: 04/26/20 09:18 Dose: 975 mg Documented by: Morphine Sulfate 8 mg/Epinephrine HCl 0.3 mg/Cefuroxime Sodium 750 mg/Ketorolac Tromethamine 30 mg/Sodium Chloride 7.9 ml 0 mg .XX ASDIRECTED PRN PRN Reason: Pain Stop: 04/26/20 18:00 Lactated Ringer's (Ringers, Lactated) 1,000 mls @ 125 mls/hr IV ASDIRECTED PABLO Stop: 04/26/20 23:00 Lidocaine/Sodium Bicarbonate (Buffered Lidocaine 1% In Ns 8.4%) 0.25 ml IDERM ONETIME PRN PRN Reason: Prior to IV Start Stop: 04/26/20 18:00 Oxycodone HCl (Oxycontin) 10 mg PO ONETIME PABLO Stop: 04/26/20 13:00 Last Admin: 04/26/20 09:18 Dose: 10 mg Documented by: Pregabalin (Lyrica) 50 mg PO ONETIME PABLO Stop: 04/26/20 13:00 Last Admin: 04/26/20 09:18 Dose: 50 mg Documented by: Sodium Chloride (Saline Flush) 10 ml FLUSH ASDIRECTED PRN PRN Reason: Keep Vein Open Stop: 04/26/20 18:00 Discontinued Medications Bupivacaine HCl (Sensorcaine-Mpf 0.25%) Confirm Administered Dose 10 ml .ROUTE .STK-MED ONE Stop: 04/26/20 09:26 Tranexamic Acid (Cyklokapron) Confirm Administered Dose 1,000 mg .ROUTE .STK-MED ONE Stop: 04/26/20 09:26 Triamcinolone Acetonide (Kenalog-40) Confirm Administered Dose 80 mg .ROUTE .STK-MED ONE Stop: 04/26/20 09:26 Vancomycin HCl (Vancomycin) Confirm Administered Dose 1 gm .ROUTE .STK-MED ONE Stop: 04/26/20 09:26
[2020-04-26] MEDS ORDERED: Propofol 200 MG/20 ML SDV ONE ×5 (10:09→12:49)
[2020-04-26] MEDS ORDERED: Ondansetron 4 MG/2 ML SDV ONE (10:09)
[2020-04-26] MEDS ORDERED: fentaNYL 100 MCG/2 ML SDV ONE ×2 (10:09→13:22)
[2020-04-26] MEDS ORDERED: Lidocaine 1% 4 ML ONE (10:10)
[2020-04-26] MEDS ORDERED: ceFAZolin 1 GM Vial ONE (10:10)
[2020-04-26] MEDS ORDERED: Midazolam 1 MG/ML 2 ML SDV ONE (10:10)
[2020-04-26] MEDS ORDERED: Ketorolac 30 MG/ML SDV ONE (10:10)
[2020-04-26] MEDS ORDERED: Lactated Ringers 1,000 ML ONE ×2 (11:58→12:47)
[2020-04-26] MEDS: Morphine 8 MG, EPINEPHrine 0.3 MG, Cefuroxime 750 MG, Ketorolac 30 MG, Sodium Chloride ... PRN ×10 (12:10→12:36)
[2020-04-26] MEDS: Vancomycin 1 GM SDV ONE ×2 (12:10→12:43)
[2020-04-26] MEDS: Bupivacaine 0.25% 10 ML SDV ONE ×2 (12:12→13:02)
[2020-04-26] MEDS: Triamcinolone Acetonide 40 MG/ML 1 ML SDV ONE ×2 (12:13→13:02)
[2020-04-26] MEDS ORDERED: Ropivacaine 0.5% 5 MG/ML 30 ML SDV ONE (13:14)
--- NOTE | 2020-04-26 13:18 | PCM.POSTAN ---
POST ANESTHESIA ASSESSMENT - MENTAL STATUS Mental Status: Alert, Oriented - VITAL SIGNS Vital Signs: Last Vital Signs Temp 36.1 C 04/26/20 13:11 Pulse 106 H 04/26/20 13:11 Resp 16 04/26/20 13:11 BP 115/59 L 04/26/20 13:11 Pulse Ox 94 L 04/26/20 13:11 - RESPIRATORY Respiratory Status: Respiratory Rate WNL, Airway Patent, O2 Saturation Stable, Supplemental Oxygen - CARDIOVASCULAR CV Status: Pulse Rate WNL, Blood Pressure Stable - GASTROINTESTINAL GI Status: No Symptoms - PAIN Pain Score: 0 - POST OP HYDRATION Hydration Status: Adequate & Stable - OBSERVATIONS Free Text/Narrative:: no anesthesia complications noted
[2020-04-26] MEDS: fentaNYL 100 MCG/2 ML SDV IVPUSH PRN ×2 (13:23→13:35)
--- NOTE | 2020-04-26 13:41 | PCM.SN.2 ---
- Free Text/Narrative Note: Left selective femoral nerve block at the adductor canal for post-procedure pain control under US guidance requested by Dr. Rausch. Time Out: 1327 Start: 1327 End: 1331 Chart reviewed. Consent signed. Questions answered. Appropriate monitors applied. Time out performed. Left mid-shaft femur identified with ultrasound, scanning medially of femur, the femoral artery in the adductor canal visualized, and the femoral nerve located laterally to the artery. The skin was prepped lateral to the ultrasound probe with chlorahexadine times two. The 21ga 4 insulated block needle was inserted under direct ultrasound guidance into the adductor canal. 25mL of 0.5% ropivacaine with 1:200,000 epinephrine was injected circumferentially around the nerve with intermittent negative aspiration noted. Patient tolerated the procedure well. Sterile technique noted along with sterile gloves, mask, and sterile probe cover. See picture on progress note and vital signs on nurses notes. Block completed in PACU. Gianni Rock CRNA
[2020-04-26] MEDS ORDERED: Cyclobenzaprine 10 MG Tab PO ONE (14:18)
[2020-04-26] MEDS ORDERED: oxyCODONE 5 MG Tab PO PRN (14:18)
--- NOTE | 2020-04-26 14:59 | PCM48HPAN ---
Post Anesthesia Note - EVALUATION WITHIN 48HRS OF ANESTHETIC Vital Signs in Normal Range: Yes Patient Participated in Evaluation: Yes Respiratory Function Stable: Yes Airway Patent: Yes Cardiovascular Function Stable: Yes Hydration Status Stable: Yes Pain Control Satisfactory: Yes Nausea and Vomiting Control Satisfactory: Yes Mental Status Recovered: Yes Vital Signs: Last Vital Signs Temp 97.1 F 04/26/20 13:59 Pulse 70 04/26/20 14:40 Resp 18 04/26/20 14:40 BP 116/79 04/26/20 14:40 Pulse Ox 94 L 04/26/20 14:40 - COMMENTS/OBSERVATIONS Free Text/Narrative:: Patient had question about post op pain drug. Dr. Rausch walking by and visiting again with the patient.
--- NOTE | 2020-04-26 15:45 | CR ---
Left knee: AP and crosstable lateral views of the left knee were obtained. Comparison: Prior left knee CT study of 04/08/20. Left knee prosthesis is noted. Components are aligned. Underlying bony structures are intact. Soft tissue air noted from the surgical procedure. Patella prosthesis is also noted. Impression: 1. Satisfactory postop radiographic appearance of left knee prosthesis. Diagnostic code #2 MTDD
[2020-04-26 16:34] VITALS: BP 127/71; PULSE 85
--- NOTE | 2020-05-02 16:52 | PCM.OPNOTE ---
- General Post-Op/Procedure Note Date of Surgery/Procedure: 04/26/20 Operative Procedure(s): left total knee arthroplasty with right knee corticosteroid injetion Pre Op Diagnosis: bilateral knee osteoarthrosis Post-Op Diagnosis: Same Anesthesia Technique: Local, MAC, Spinal Primary Surgeon: Chapincito Rausch Anesthesia Provider: Gianni Rock Insurance Processing Clerk: Donna Cline Insurance Processing Clerk: Vianca Rosales EBL in mLs: 250 Complications: None Condition: Good Free Text/Narrative:: 07/14 9mm 32x10
--- NOTE | 2020-05-02 17:29 | OR ---
DATE OF OPERATION: 04/26/2020 SURGEON: Chapincito Rausch MD OPERATION PERFORMED: Left total knee arthroplasty with right knee corticosteroid injection, [employer]. PREOPERATIVE DIAGNOSIS: Bilateral knee osteoarthrosis. POSTOPERATIVE DIAGNOSIS: Bilateral knee osteoarthrosis. ANESTHESIA: Local MAC with spinal. ANESTHESIA PROVIDER: Gianni Rock. ASSISTANTS: Donna Cline PA-C and Vianca Rosales LPN ESTIMATED BLOOD LOSS: 250 mL. COMPLICATIONS: None. CONDITION: Stable. IMPLANTS: 1. [employer] size 5 press-fit CR femur. 2. [employer] size 5 press-fit tibial baseplate. 3. [employer] size 5, 9 mm CS polyethylene insert. 4. [employer] size 32 x 10 mm press-fit asymmetric patella. DESCRIPTION OF PROCEDURE: The patient was identified in the preoperative holding area. Proper site was marked and identified by the surgeon. The patient was taken back to the operating theater where after adequate anesthesia, a nonsterile tourniquet was applied to the left lower extremity. Left lower extremity was then sterilely prepped and draped in the usual sterile fashion. OR time-out was performed. The patient received 2 g of IV Ancef. The leg-baker boot was then applied to the left lower extremity and then it was exsanguinated. The tourniquet was insufflated to 250 mmHg. Standard anterior incision was made and medial parapatellar arthrotomy was created. Deep fibers of the MCL were raised and anterior fat pad was resected. Attention was turned to the patella. The patella measured a 24 and resected to a 14 for 32 x 10 mm patella. At this time, attention was turned to the femur and 2 femoral 4-0 pins were placed intra- incisionally for the femoral array for the [employer]. Two pins were also placed in the tibia 4 fingerbreadths below the tibial tubercle for the [employer] array. A checkpoint was placed in the tibia and the femur. Center rotation was obtained. Medial and lateral malleoli were marked. 40 points were then obtained from both the femur and the tibia. The patient's knee was brought into full extension and was stressed in varus and valgus and then 90 degrees of flexion in varus and valgus with Bennett. The plan was for 19 mm gaps in both flexion and extension and it was properly aligned using the [employer] for the cuts at this time. The straight saw blade was then utilized for the anterior femoral cut as well as the posterior cut and anterior chamber and tibial cut. These were all completed and found to be adequate. Saw blade was then switched and the posterior chamfer as well as distal femoral cut was completed. At this time, the bone cuts were removed. The medial and lateral meniscus were removed as well as any posterior osteophytes. Trial implants with a size 5 tibia and the size 5 femur were placed. 9 mm trial poly was placed. The patient had full extension. He had started with actually 14 degrees of recurvatum and we were able to get it to roughly only 4 degrees of recurvatum with a 9 mm polyethylene. He was otherwise stable to varus and valgus stresses and full range of motion with no signs of lift-off. The trial implants were then removed after the tibia was stamped and drilled in proper rotation and the femoral drill holes were drilled. The size 5 tibia was then impacted into place. The size 5 CR femur was impacted into place and a 9 mm CS polyethylene insert was impacted into place. The patient's knee was brought to full extension and a 32 x 10 mm press-fit patella was press-fit into place. The tourniquet was deflated. All bleeders were cauterized. The periarticular injection was completed. 450 mL of Irrisept irrigation were irrigated through the knee along with 1 L of pulse lavage irrigation with Ancef. Marcaine was injected subcuticularly. A #2 barbed suture was used for closure of the medial parapatellar arthrotomy. TXA and vancomycin powder were placed intra- articularly before this. 2-0 Vicryl and Stratafix were used for the skin closure as well as Prineo. The patient had a sterile soft dressing applied and was sent to the PACU in stable condition. After this was completed under sterile technique, 2 mL of 40 mg Kenalog and 4 mL of 0.25% Marcaine was injected to the contralateral knee on the right side. We did make sure that all arrays as well as checkpoints were removed before closure. After this under sterile technique 2ml 40mg Kenalog and 4ml 0.25% marcaine were injected to the right knee. MMODAL /[id number] MTDJeannine
== END 2020-04-26 16:12 | disposition home or self-care (01) ==
LOC: JD.SDS 09:13
PROVIDERS: ATTEND Orthopaedic Surgery
DX: M17.0 Bilateral primary osteoarthritis of knee (principal); I25.10 Atherosclerotic heart disease of native coronary artery without angina pectoris; G89.29 Other chronic pain; I25.2 Old myocardial infarction; E11.65 Type 2 diabetes mellitus with hyperglycemia; I10 Essential (primary) hypertension; F17.220 Nicotine dependence, chewing tobacco, uncomplicated; E78.00 Pure hypercholesterolemia, unspecified; Z79.4 Long term (current) use of insulin; Z79.899 Other long term (current) drug therapy; Z79.01 Long term (current) use of anticoagulants
CPT/HCPCS: 01402; 64450; 73560-26-LT; 73560-LT; 80306; 87641; 97110-GP; 97116-GP; 97161-GP; 97165-GO; A9270-GY; C1713; C1776; J0171; J0690; J0697; J1885; J2250; J2270; J2370; J2405; J2704; J2795; J3010; J3301; J3370; J3490; J7120

== ENCOUNTER 2022-05-11 08:37 | Day surgery (SDC) | payer BC, MEDICAID ==
[~2022-05-11 08:37] MED LIST changes: +Acetaminophen 325 MG Tab PO ONE; -Acetaminophen 325 MG Tab PO SCH; +EPINEPHrine 1 MG/ML SDV ONE; +Lactated Ringers 1,000 ML ONE; +Midazolam 1 MG/ML 2 ML SDV ONE; +Pregabalin 25 MG Cap PO ONE; -Pregabalin 25 MG Cap PO SCH; +Propofol 200 MG/20 ML SDV ONE; +Ropivacaine 0.5% 5 MG/ML 30 ML SDV ONE; +Sodium Chloride 0.9% 10 ML Syringe FLUSH SCH; +ceFAZolin 2 GM Vial ONE; +oxyCODONE ER 10 MG TAB.ER PO ONE; -oxyCODONE ER 10 MG TAB.ER PO SCH
[2022-05-11] MEDS ORDERED: fentaNYL 100 MCG/2 ML SDV ONE ×2 (10:17→10:45)
[2022-05-11] MEDS ORDERED: Lidocaine 1% 5 ML VIAL ONE (10:17)
[2022-05-11] MEDS ORDERED: Dexamethasone 4 MG/ML 5 ML MDV ONE (10:21)
[2022-05-11] MEDS ORDERED: Rocuronium 50 MG/5 ML Vial ONE (10:21)
[2022-05-11] MEDS ORDERED: Ondansetron 4 MG/2 ML SDV ONE (10:21)
[2022-05-11] MEDS ORDERED: HYDROmorphone 0.5 MG/0.5 ML Syringe ONE ×3 (10:33→11:14)
[2022-05-11] MEDS ORDERED: Labetalol 100 MG/20 ML MDV ONE (10:45)
[2022-05-11] MEDS ORDERED: Phenylephrine HCl In 0.9% NaCl 1 MG/10 ML Vial ONE (10:48)
[2022-05-11] MEDS: Vancomycin 1 GM SDV ONE ×2 (11:09→11:31)
[2022-05-11] MEDS: Tranexamic Acid 1,000 MG/10 ML Vial ONE ×2 (11:09→11:31)
[2022-05-11] MEDS: Morphine 8 MG, EPINEPHrine 0.3 MG, Cefuroxime 750 MG, Ketorolac 30 MG, Sodium Chloride ... PRN ×10 (11:10→11:25)
[2022-05-11] MEDS ORDERED: fentaNYL 100 MCG/2 ML SDV IVPUSH PRN (11:43)
[2022-05-11] MEDS ORDERED: Ondansetron 4 MG/2 ML SDV IVPUSH PRN (11:43)
[2022-05-11] MEDS ORDERED: Sugammadex Sodium 200 MG/2 ML VIAL ONE (11:56)
[2022-05-11] MEDS: HYDROmorphone 0.5 MG/0.5 ML Syringe IVPUSH PRN ×2 (12:46→13:26)
[2022-05-11] MEDS ORDERED: Cyclobenzaprine 10 MG Tab PO ONE (13:23)
[2022-05-11] MEDS ORDERED: oxyCODONE 5 MG Tab PO ONE (13:45)
[2022-05-11] MEDS ORDERED: oxyCODONE 5 MG Tab PO SCH (14:00)
[2022-05-11 15:14] VITALS: BP 140/72; PULSE 78
== END 2022-05-11 15:12 | disposition home or self-care (01) ==
LOC: JD.SDS 08:37
PROVIDERS: ATTEND Orthopaedic Surgery
DX: M17.11 Unilateral primary osteoarthritis, right knee (principal); H61.22 Impacted cerumen, left ear; E11.9 Type 2 diabetes mellitus without complications; K21.9 Gastro-esophageal reflux disease without esophagitis; E78.00 Pure hypercholesterolemia, unspecified; I10 Essential (primary) hypertension; I25.2 Old myocardial infarction; F17.210 Nicotine dependence, cigarettes, uncomplicated; Z79.899 Other long term (current) drug therapy
CPT/HCPCS: 0055T; 27447; 64447; 73560; 97116; 97161; A9270; C1713; C1776; J0171; J0690; J0697; J1100; J1170; J1885; J2250; J2270; J2405; J2704; J2795; J3010; J3370; J3490; J7120; 01402; 64450

== ENCOUNTER 2022-05-17 19:13 | Emergency (ER) | payer BC ==
[2022-05-17 19:29] VITALS: BP 155/90; PULSE 103
[2022-05-17] MEDS ORDERED: HYDROmorphone 1 MG/ML Syringe IM ONE (19:53)
== END 2022-05-17 22:17 | disposition home or self-care (01) ==
LOC: JD.ED 19:13
DX: M25.561 Pain in right knee (principal); I10 Essential (primary) hypertension; I25.2 Old myocardial infarction; E11.9 Type 2 diabetes mellitus without complications; Z72.0 Tobacco use; Z96.651 Presence of right artificial knee joint; Z79.01 Long term (current) use of anticoagulants; Z79.899 Other long term (current) drug therapy
CPT/HCPCS: 93971; 96372; 99283; J1170

== ENCOUNTER 2022-07-08 07:38 | Emergency (ER) | payer BC ==
[2022-07-08 09:40] VITALS: BP 122/89; PULSE 78
== END 2022-07-08 09:40 | disposition home or self-care (01) ==
LOC: JD.ED 07:38
DX: M79.89 Other specified soft tissue disorders (principal); I10 Essential (primary) hypertension; I25.2 Old myocardial infarction; E11.9 Type 2 diabetes mellitus without complications
CPT/HCPCS: 93971-26-RT; 93971-RT; 99283

== ENCOUNTER 2023-05-08 07:45 | Emergency (ER) | payer BC ==
[2023-05-08] MEDS: Sodium Chloride 0.9% 1,000 ML IV SCH ×3 (08:40→11:55)
[2023-05-08 08:50] LABS: BASOPHILS ABSOLUTE AUTO 0.1 K/mm3 (0.0-0.2); EOSINOPHILS ABSOLUTE AUTO 0.2 K/mm3 (0.0-0.4); EOSINOPHILS PERCENT AUTO 2.4 % (0.0-6.0); HEMATOCRIT 49.5 % (42.0-52.0); HEMOGLOBIN 17.6 gm/dl (14.0-18.0); IMMATURE GRAN ABSOLUTE AUTO 0.04 K/mm3 (0.00-0.05); IMMATURE GRAN PERCENT AUTO 0.4 % (0.0-0.4); LYMPHOCYTES ABSOLUTE AUTO 2.2 K/mm3 (1.0-4.8); LYMPHOCYTES PERCENT AUTO 22.7 % (24.0-44.0); MEAN CORPUSCULAR HEMOGLOBIN 30.6 pg (28.0-32.0); MEAN CORPUSCULAR HGB CONC 35.6 g/dl (32.0-36.0); MEAN CORPUSCULAR VOLUME 85.9 fl (83.0-99.0); MEAN PLATELET VOLUME 11.4 fl (9.4-12.4); MONOCYTES ABSOLUTE AUTO 0.7 K/mm3 (0.0-0.8); MONOCYTES PERCENT AUTO 7.6 % (0.0-8.0); NEUTROPHILS ABSOLUTE AUTO 6.3 K/mm3 (1.8-7.7); NEUTROPHILS PERCENT AUTO 65.9 % (41.0-71.0); PLATELET COUNT,PLT 240 K/mm3 (150-400); RED BLOOD CELL COUNT 5.76 M/mm3 (4.52-5.90); WHITE BLOOD CELL COUNT,WBC 9.61 K/mm3 (3.9-11.3)
[2023-05-08 09:07] LABS: APPEARANCE,URINE CLEAR (Clear); BILIRUBIN,URINE NEGATIVE (Negative); COLOR,URINE YELLOW (Yellow); GLUCOSE,URINE 3+ (Negative); KETONES,URINE 1+ (Negative); LEUKOCYTE ESTERASE,URINE NEGATIVE (Negative); NITRITE,URINE NEGATIVE (Negative); OCCULT BLOOD,URINE NEGATIVE (Negative); PROTEIN,URINE NEGATIVE (Negative); UROBILINOGEN,URINE 0.2 (0.2-1.0)
[2023-05-08 09:14] LABS: ALBUMIN 4.2 g/dl (3.4-5.0); BILIRUBIN TOTAL 0.9 mg/dL (0.2-1.0); BUN/CREATININE RATIO 13.8 (14-18); CALCIUM 9.6 mg/dL (8.5-10.1); CREATININE 1.6 mg/dL (0.7-1.3); EST CRCL DRUG DOSING (CG) 59.57 mL/min; PROTEIN TOTAL,TP 8.5 g/dl (6.4-8.2)
[2023-05-08 13:16] VITALS: BP 155/98; PULSE 72
== END 2023-05-08 13:12 | disposition home or self-care (01) ==
LOC: JD.ED 07:45
DX: E11.65 Type 2 diabetes mellitus with hyperglycemia (principal); I10 Essential (primary) hypertension; I25.2 Old myocardial infarction; Z86.16 Personal history of COVID-19; Z79.899 Other long term (current) drug therapy
CPT/HCPCS: 36415; 80053; 81003; 82010; 82947; 83605; 83690; 85025; 96360; 96361; 99283; J7030